=== PATIENT | female | born 1975 | race Caucasian/White ===

== ENCOUNTER 2018-07-14 10:53 | Inpatient (IN) ==
--- NOTE | 2018-07-11 14:42 | EKG Report ---
Test Performed on : 07/11/2018 2:28:43 PM Test Reason : PAT Blood Pressure : / mmHG Vent. Rate : 058 BPM Atrial Rate : 058 BPM P-R Int : 114 ms QRS Dur : 078 ms QT Int : 378 ms P-R-T Axes : 077 078 074 degrees QTc Int : 371 ms Sinus bradycardia. Otherwise normal ECG No previous ECGs available Confirmed by Haley SHERMAN, Mark Fine ([id number]) on 07/11/2018 5:51:57 PM
[2018-07-11 14:55] LABS: HEMATOCRIT 41.4 % (37.0-47.0); HEMOGLOBIN 13.5 g/dL (12.0-16.0); MCH 29.3 PG (27-31); MCHC 32.6 g/dL (33-37); MPV 11.6 FL (7.4-10.4); RBC 4.6 XMIL (4.2-5.4); RDW 14.4 % (11.5-14.5); WBC 11.12 X1000 (4.8-10.8)
[2018-07-11 15:07] LABS: AGAP 11; ALB/GLOB RATIO 1.6; ALBUMIN 4.1 g/dL (3.5-5.0); ALKALINE PHOSPHATASE 160 U/L (32-104); BUN 16 mg/dL (8-22); CALCIUM 10.8 mg/dL (8.8-10.2); CHLORIDE 101 mmol/L (98-107); COSMO 274; ESTIMATED GFR > 60; GLUCOSE 87 mg/dL (70-104); GOT 15 U/L (10-30); GPT 8 U/L (10-36); POTASSIUM 5.1 mmol/L (3.5-5.1); SODIUM 137 mmol/L (136-145); TCO2 25 mmol/L (25-35); TOTAL BILIRUBIN 0.21 mg/dL (0.20-1.00); TOTAL PROTEIN 6.7 g/dL (6.3-8.3)
[2018-07-14] MEDS ORDERED: PEPCID ONE (11:54)
[2018-07-14] MEDS ORDERED: LR 1,000 ML ONE ×2 (11:54→16:09)
[2018-07-14] MEDS ORDERED: MEFOXIN 2 GM/NS 2 GM/50 ML IVPB ONE (11:54)
[2018-07-14] MEDS ORDERED: REGLAN ONE (11:54)
[2018-07-14] MEDS ORDERED: DIPRIVAN 1% ONE ×2 (12:14→13:06)
[2018-07-14] MEDS ORDERED: XYLOCAINE-MPF 2% ONE ×2 (12:14→13:07)
[2018-07-14] MEDS ORDERED: EXPAREL 1.3% ONE (12:27)
[2018-07-14] MEDS ORDERED: SODIUM CHLORIDE 0.9% 10 ML ONE (13:09)
[2018-07-14] MEDS ORDERED: QUELICIN (DOSE) ONE (13:09)
[2018-07-14] MEDS ORDERED: VERSED ONE (13:09)
[2018-07-14] MEDS ORDERED: NORCURON ONE (13:09)
[2018-07-14] MEDS ORDERED: FENTANYL ONE (13:53)
[2018-07-14] MEDS ORDERED: ZOFRAN ONE (14:02)
[2018-07-14] MEDS ORDERED: DECADRON ONE (14:02)
[2018-07-14 14:42] LABS: URINE SOURCE CATH
[2018-07-14 14:53] LABS: BILIRUBIN URINE NEGATIVE (NEGATIVE); BLOOD URINE NEGATIVE (NEGATIVE); COLOR YELLOW; GLUCOSE URINE NEGATIVE (NEGATIVE); KETONE URINE NEGATIVE (NEGATIVE); LEUKOCYTES URINE NEGATIVE (NEGATIVE); NITRITE URINE NEGATIVE (NEGATIVE); PH URINE 5.5; PROTEIN URINE NEGATIVE (NEGATIVE); SP GRAVITY URINE 1.005; TURBIDITY URINE CLEAR (CLEAR); UR EPITHELIAL CELLS <10 /HPF (<10); URINE BACTERIA NEGATIVE /HPF; URINE RBC <10 /HPF (<10); URINE WBC <10 /HPF (<10); UROBILINOGEN URINE NORMAL (NORMAL)
[2018-07-14] MEDS: DILAUDID ONE ×4 (15:48→16:02)
[2018-07-14] MEDS: PHENERGAN ONE ×2 (15:55→16:41)
[2018-07-14] MEDS ORDERED: ZOFRAN IV PRN (17:05)
[2018-07-14] MEDS ORDERED: DILAUDID IV PRN (17:07)
[2018-07-14] MEDS ORDERED: PROTONIX IV SCH (18:00)
[2018-07-14] MEDS: LR 1,000 ML IV SCH (19:03)
[2018-07-14] MEDS: SODIUM CHLORIDE 0.9% INJ SCH (19:03)
[2018-07-14] MEDS ORDERED: SODIUM CHLORIDE 0.9% INJ PRN (20:08)
[2018-07-14] MEDS ORDERED: NEURONTIN PO SCH (21:00)
[2018-07-14] MEDS: DILAUDID IV PRN (22:30)
[2018-07-14] MEDS: LOPRESSOR IV SCH (22:33)
[2018-07-15] MEDS: DILAUDID IV PRN ×6 (02:59→16:37)
[2018-07-15] MEDS: LR 1,000 ML IV SCH ×3 (03:02→23:14)
--- NOTE | 2018-07-15 05:29 | OPERATIVE NOTE ---
PROCEDURE DATE: 07/14/2018 PREOPERATIVE DIAGNOSIS: Intractable peptic ulcer disease, with gastric outlet obstruction, and acquired pyloric stenosis. POSTOPERATIVE DIAGNOSIS: Intractable peptic ulcer disease, with gastric outlet obstruction, and acquired pyloric stenosis. PROCEDURE: 1. Open antrectomy, with Billroth I anastomosis. 2. Truncal vagotomy. SURGEON: Dr. Saul Arcos. SUPERVISOR HAND SILVERING: Dr. Santiago Gonzalez. (Dr. Gonzalez was present for the entirety of the case. His presence was crucial for completion of the case.) ANESTHESIA: General endotracheal. OPERATIVE FINDINGS: Two nerves noted, anterior and posterior vagus nerves, confirmed with Pathology. COMPLICATIONS: None at the time of this dictation. ESTIMATED BLOOD LOSS: 100 mL. SPECIMEN REMOVED: Vagus nerve x2 in the antrum. BRIEF HISTORY: A 42-year-old female who had intractable peptic ulcer disease and pyloric stenosis, despite maximal medical therapy. It was felt that she would benefit from a truncal vagotomy and an antrectomy. The risks, benefits, and alternatives were discussed and documented in the chart. All questions answered. DESCRIPTION OF PROCEDURE: After informed consent was obtained, the patient was brought to the operative theatre, transferred to the operative table, placed in supine position. General endotracheal anesthesia was then performed, without complication. A formal time-out was then performed, confirming patient, date, and procedure. All were in agreement. At that time, attention was given in the midline. A standard midline incision was made on the upper aspect of the abdomen. Entered into the abdomen. We first mobilized the left lobe of the liver by taking down the triangle ligament to expose the hiatus. I was able to get around the esophagus after having the NG tube placed. We had freed up the peritoneal around the esophagus, found both the anterior and posterior vagi. I isolated them, clipped them both proximally and distally, and at least 3 cm in vivo was excised, sent down to Pathology, and confirmed both peripheral nerves in both the anterior and posterior specimen. We did not feel any other obvious nerves there. We then turned our attention to the antrectomy. We found the incisura of the stomach in the anatomic position of the antrum. We mobilized the greater curvature and the lesser curvature the stomach, all the way down to the duodenum. We then fired a stapler across the antrum and the duodenum. We then fashioned a hand-sewn anastomosis in 2 layers using 3-0 silk and 3-0 Vicryl, and a Billroth I anastomosis, anastomosing the stomach to the duodenum. This went well. We oversewed it and confirmed it was patent. We then irrigated out the abdomen, then closed the abdomen in layers using looped PDS and arsalan for the skin. The patient tolerated the procedure well, and was transferred back to the recovery room in stable condition. She had an NG tube in the stomach. cc: Saul Arcos MD
[2018-07-15] MEDS: SYNTHROID IV SCH (06:11)
[2018-07-15] MEDS: HEPARIN SUBQ SCH ×3 (06:12→23:16)
[2018-07-15 06:22] LABS: BASO# 0.02 X1000 (0.0-0.2); BASO% 0.1 % (0.0-0.8); HEMATOCRIT 34.1 % (37.0-47.0); HEMOGLOBIN 10.8 g/dL (12.0-16.0); IMM GRAN# 0.08 X1000 (0.0-0.04); IMM GRAN% 0.4 % (0.0-0.5); LYMPH# 1.81 X1000 (1.2-3.4); LYMPH% 8.1 % (20.5-51.1); MCHC 31.7 g/dL (33-37); MCV 91.7 FL (81-99); MONO# 2.28 X1000 (0.11-0.59); MONO% 10.2 % (1.7-9.3); MPV 12.3 FL (7.4-10.4); NEUT# 18.19 X1000 (1.4-6.5); NEUT% 81.2 % (42.2-75.2); PLT 288 X1000 (130-400); RBC 3.72 XMIL (4.2-5.4); RDW 14.5 % (11.5-14.5); WBC 22.38 X1000 (4.8-10.8)
--- NOTE | 2018-07-15 06:32 | CONSULTATION ---
DATE OF CONSULTATION: 07/14/2018 REASON FOR CONSULTATION: Request for medical management. HISTORY: Briefly, this is a 42-year-old female patient of Dr. Ronquillo and Dr. Arcos who has intractable peptic ulcer disease. She had a scope done 10 days ago, I do not have the report, but the biopsy shows severe gastritis and colitis. In any case, she underwent elective vagotomy and antrectomy today per Dr. Arcos. He is requesting a postop medical management consultation. She is to be strictly NPO for the time being. I am seeing her postop, NG is in place. She seems comfortable and relaxed, no major issues. PAST MEDICAL HISTORY: 1. Hypertension. 2. IBS. 3. Hypothyroidism. 4. Severe peptic ulcer disease. PAST SURGICAL HISTORY: I could not get clear if she has had surgery on her right hand associated with trauma. 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 SOCIAL HISTORY: She smokes about a pack a day. She has done that for at least 25 years. No clear alcohol use. ALLERGIES: To codeine and morphine. MEDICATIONS: She takes Bentyl 20 q.i.d., gabapentin 300 at bedtime, hydrochlorothiazide 25 daily, irbesartan 300 daily, Synthroid 75 daily, Lopressor 50 daily, omeprazole 40 daily, and sucralfate 1 g q.i.d. REVIEW OF SYSTEMS: Otherwise negative 10 point review of systems. FAMILY HISTORY: Noncontributory except for hypertension. PHYSICAL EXAMINATION: Vital Signs: Blood pressure 114/81, respiratory rate of 18, heart rate 113, and temperature 98.1 degrees. General: A well-developed female in no acute distress. HEENT: Head exam was normocephalic and atraumatic. Eye exam pupils equal, round, and reactive to light. Extraocular movements were intact. Ears, nose and throat: Moist mucous membranes. Neck: Supple. Cardiovascular: Regular rate and rhythm. Pulmonary: Bilateral breath sounds. GI: Soft, nontender, and nondistended. Bowel sounds are positive. Neurological: Nonfocal. Musculoskeletal: 4/5 in all 4 extremities. LABORATORY DATA: Preop hemoglobin and hematocrit 13 and 41. Basic was otherwise normal. ASSESSMENT: A 42-year-old female with history of PUD and hypertension who presents status post vagotomy and antrectomy for medical management. 1. Hypertension. We will continue to monitor. Currently, she is normotensive and strict NPO. We will initiate some low-dose Lopressor and follow. 2. Hypothyroidism. We will check her thyroid function and continue Synthroid intravenously at half dose. 3. Peptic ulcer disease, status post vagotomy. Care will be per Dr. Arcos. We will follow closely along with him. Continue DVT and GI prophylaxis. As described, Lovenox and Protonix. cc: MD Saul Vizcaino MD Thomas E. Lockard,
[2018-07-15 06:51] LABS: CALCIUM 9.9 mg/dL (8.8-10.2); MAGNESIUM 1.8 mg/dL (1.5-2.7); POTASSIUM 5.6 mmol/L (3.5-5.1)
[2018-07-15] MEDS ORDERED: LOPRESSOR PO SCH (09:00)
--- NOTE | 2018-07-15 09:25 | GENERAL SURGERY PROGRESS NOTE ---
DATE: 07/15/2018 SUBJECTIVE: Patient seems to be doing okay. Her pain seems to be better controlled now. She had some alterations to her pain medication. OBJECTIVE: Vital Signs: Patient is currently afebrile. She does have a low-grade tachycardia. Her blood pressure is stable. General: No acute distress. Cardiovascular: Some mild tachycardia. Lungs: Grossly clear. Abdomen: Soft, appropriately tender. NG tube in place with minimal output. ASSESSMENT AND PLAN: A 42-year-old postop day #1 from a vagotomy with antrectomy with Billroth 1 reconstruction. 1. Postoperative state at this time, we will continue routine postoperative care. We will discontinue her Henao catheter. We will keep the NG tube in place until she has some return of bowel function. If the NG tube is removed, then we do not want it replaced. We will continue current treatment and continue to monitor. Overall she seems to be doing okay. I appreciate the hospitalist's help for medical management. cc: MD Patrice Hassan MD
[2018-07-15] MEDS: PERIDEX MT SCH ×2 (09:33→23:16)
[2018-07-15] MEDS: LOPRESSOR IV SCH ×3 (10:03→23:17)
[2018-07-15] MEDS ORDERED: LR 1,000 ML IV ONE (10:05)
[2018-07-15 12:45] LABS: UR CREAT RANDOM 203.4 mg/dL (11-20); UR PROT RANDOM 92.1 mg/dL
[2018-07-15] MEDS ORDERED: NARCAN IV PRN (18:31)
--- NOTE | 2018-07-15 19:24 | Diag Imaging Result Doc PS360 ---
EXAM: US RENAL 2 (RETROPER) COMPLETE INDICATION: radha/arf TECHNIQUE: COMPARISON: 08/24/2016 FINDINGS: There is a 1 cm simple cyst associated with the right kidney. The kidneys are grossly normal in echotexture, otherwise. Both kidneys measure up to 10.9 cm in the greatest longitudinal axes. The right renal cortex measures 1.1 cm in the left renal cortex measures 1 cm in thickness. The urinary bladder is grossly unremarkable. IMPRESSION: Essentially unremarkable renal ultrasound. Electronically signed by Rigoberto Ferrell 07/15/2018 7:22 PM
[2018-07-15] MEDS: DILAUDID PCA VIAL IV PRN (20:46)
--- NOTE | 2018-07-16 00:18 | PROGRESS NOTE ---
DATE: 07/15/2018 SUBJECTIVE: The patient has no major complaints. OBJECTIVE: Vital signs: Blood pressure is 128/86, heart rate of 114, respiratory rate 16, temperature 99.2 degrees, 99% on 2 L. Cardiovascular: Regular rate and rhythm. Pulmonary: Bilateral breath sounds. Clear to auscultation. Gastrointestinal: Soft, nontender, nondistended. Bowel sounds are positive. LABORATORY DATA: White count is 22, hemoglobin 10, hematocrit 34, platelets 288,000. Potassium 5.6. Creatinine has bumped up to 2. PROBLEM LIST: 1. Severe peptic ulcer disease with pyloric stricture. She is status post an antrectomy and vagotomy, postop day 1, per Dr. Arcos. NG is in place. Continuing fluids, and we will follow closely. Dr. Ronquillo is also following. 2. Acute kidney injury, really unclear. She has not received anything nephrotoxic. She is on irbesartan and hydrochlorothiazide usually, but she has not gotten those since she has been in the hospital. The only medication I can see that potentially would cause renal injury is the Mefoxin she got preop. It would be an allergic interstitial nephritis, possibly. In any case, the patient is stable. We will continue hydration, check urine electrolytes, and follow. 3. Hypothyroidism. That also seems to be controlled on current medications. 4. It may be several days before discharge. cc: Patrice Ragsdale MD
[2018-07-16] MEDS ORDERED: NS 500 ML IV ONE (03:03)
[2018-07-16] MEDS: LOPRESSOR IV SCH ×5 (03:09→22:30)
--- NOTE | 2018-07-16 04:25 | CONSULTATION ---
DATE OF CONSULTATION: 07/15/2018 REFERRING PHYSICIAN: Saul Arcos MD. INDICATION FOR CONSULTATION: 1. Peptic ulcer disease. 2. Anemia. HISTORY OF PRESENT ILLNESS: The patient is 42-year-old female who is well known to our clinic. She was initially referred to our office in November 2017 for vomiting post colonoscopy. The CT scan of the abdomen and pelvis revealed an ulcer. On EGD, she was found to have a 4 cm ulcer with heaped-up edges in the antrum with visible vessels. The vessels were cauterized. She also had gastric stasis due to a functional gastric outlet obstruction, which was treated with balloon dilation of the pylorus. Post procedure, the patient continued to have epigastric pain. She underwent repeat EGD x2 at 12 and 24 weeks following the initial procedure. She clinically had failed to respond to PPI therapy twice a day with Pepcid Complete at night, along with Carafate 4 times a day. She required pyloric dilation on 3 separate occasions due to functional gastric outlet obstruction. She continued to have weight loss and abdominal pain despite therapy. Her biopsies, which were performed at the [facility], revealed a large gastric ulcer but no evidence of malignancy. Her biopsies have been repeatedly H. pylori negative. She presented to the clinic in early June and reported that she was feeling well. She underwent an EGD and a screening colonoscopy on 07/07/2018 as she also has a family history of colon cancer in an aunt who was diagnosed with colon cancer in her 40s. On EGD, she was found to have gastric outlet obstruction with a persistent antral ulcer. She had severe pyloric stenosis again for the 3rd time with a pinpoint lumen. Her pyloric stenosis was dilated using balloon dilation. She also had duodenitis on EGD. On colonoscopy, she was found to have hyperplastic colon polyps, diverticulosis, and patchy focal colitis at 30 cm which was thought to be related to her bowel prep. She reports a history of diarrhea that had improved prior to her endoscopic evaluation. Her gastric emptying study revealed almost no output, consistent with gastric outlet obstruction versus severe gastroparesis. She was referred to Dr. Gregg Arcos for recurrent pyloric stenosis with gastric outlet obstruction. She is 24 hours postop from an antrectomy with vagotomy. Currently, she reports mild abdominal pain. She denies fever and chills. However, her clinical course has been remarkable for worsening anemia, acute renal failure, and leukocytosis. We are asked to participate in her care. PAST MEDICAL HISTORY: 1. Hypertension. 2. IBS. 3. Hypothyroidism. 4. Severe peptic ulcer disease. 5. Diverticulosis. 6. Hyperplastic colon polyps. 7. Hemorrhoids. 8. Traumatic injury to the right hand resulting in a right digit amputation in 1998. PAST SURGICAL HISTORY: 1. Bilateral tubal ligation. 2. Right finger traumatic injury resulting in amputation in 1998. 3. Antrectomy with vagotomy as noted above. SOCIAL HISTORY: Negative for alcohol, recreational drug use. She smokes 1 pack per day for the last 25 years. MEDICATION ALLERGIES: 1. Codeine. 2. Morphine. HOME MEDICATIONS: 1. Bentyl. 2. Gabapentin. 3. Hydrochlorothiazide. 4. Irbesartan. 5. Synthroid. 6. Lopressor. 7. Omeprazole. 8. Carafate 4 times a day. 9. Pepcid Complete as needed. REVIEW OF SYSTEMS: Remarkable for increased thirst and the expected postop abdominal pain. FAMILY HISTORY: Remarkable in that her paternal aunt had colon cancer in her 40s. There is also a history of hypertension. PHYSICAL EXAMINATION: Vital Signs: Her blood pressure is 128/86, pulse of 114, respirations 16, temperature of 99.2 degrees. Her pain is a 8 to 10 out of 10 on a 0 to 10 scale. OBJECTIVE DATA: Reveals a hemoglobin of 10.8 with hematocrit of 34.1 and a white count of 22.38. She has 288,000 platelets. Sodium is 138, potassium 5.6, chloride 102, CO2 of 24, BUN 31, creatinine 2.0, glucose 121, and a calcium of 9.9. Her magnesium is 1.8. On 07/11/2017, her total bilirubin was 0.21, AST 15, ALT 8, alkaline phosphatase 160, total protein 6.7, albumin 4.1. IMPRESSION: 1. Peptic ulcer disease. 2. Anemia. 3. Acute renal failure. 4. Elevated alkaline phosphatase. RECOMMENDATION: 1. From a GI perspective, the patient is status post antrectomy with vagotomy for severe peptic ulcer disease. Therefore, I will increase her Protonix to 40 mg IV q.12 hours. 2. The patient was noted to be anemic. I recommend conservative management at this time. However, if her hemoglobin continues to drop, she may require evaluation of her small bowel. On her colonoscopy, she had findings as noted above. She also has the history of peptic ulcer disease. If it drops below 7.0, please transfuse as clinically indicated. 3. The patient had nonspecific colitis on colonoscopy. The etiology is unclear and may be related to her bowel prep. Given her recent surgery, I recommend careful monitoring at this time. We may need to pursue further evaluation if she develops symptoms. 4. The acute renal failure is of unknown etiology. I will defer to the hospitalist for further evaluation. 5. The patient has elevated alkaline phosphatase. I recommend that we check alkaline phosphatase fractions. Depending on the findings on the fractionated alkaline phosphatase, I will pursue further evaluation. I will also check a GGT and a 5'-Nucleotidase. 6. I will provide the patient with ice chips as she reports increased thirst. 7. I will discuss with the surgical team the timing of tube feedings versus resumption of an oral diet. cc: MD Patrice Long MD Matthew L. Figh, MD
[2018-07-16 05:50] LABS: BASO# 0.02 X1000 (0.0-0.2); BASO% 0.1 % (0.0-0.8); HEMATOCRIT 26.5 % (37.0-47.0); HEMOGLOBIN 8.5 g/dL (12.0-16.0); IMM GRAN# 0.08 X1000 (0.0-0.04); IMM GRAN% 0.4 % (0.0-0.5); LYMPH# 1.33 X1000 (1.2-3.4); LYMPH% 6.6 % (20.5-51.1); MCH 29.4 PG (27-31); MCHC 32.1 g/dL (33-37); MCV 91.7 FL (81-99); MONO# 2.11 X1000 (0.11-0.59); MONO% 10.5 % (1.7-9.3); MPV 12.6 FL (7.4-10.4); NEUT# 16.65 X1000 (1.4-6.5); NEUT% 82.4 % (42.2-75.2); PLT 185 X1000 (130-400); RBC 2.89 XMIL (4.2-5.4); RDW 14.5 % (11.5-14.5); WBC 20.19 X1000 (4.8-10.8)
[2018-07-16 06:15] LABS: ALB/GLOB RATIO 1.2; CALCIUM 9.4 mg/dL (8.8-10.2); CREATININE 1.8 mg/dL (0.5-0.9); DIRECT BILIRUBIN 0.2 mg/dL (0.00-0.20); POTASSIUM 4.9 mmol/L (3.5-5.1); TOTAL BILIRUBIN 0.52 mg/dL (0.20-1.00); TOTAL PROTEIN 5.5 g/dL (6.3-8.3)
[2018-07-16 07:02] LABS: BANDS 2 % (0-1); LYMPHS 14 % (21-51); MONO 13 % (1-9); SEGS 71 % (42-75)
[2018-07-16] MEDS: HEPARIN SUBQ SCH ×2 (07:45→15:38)
[2018-07-16] MEDS: SYNTHROID IV SCH (07:45)
[2018-07-16] MEDS: PROTONIX IV SCH ×3 (07:46→20:18)
[2018-07-16] MEDS: SODIUM CHLORIDE 0.9% INJ SCH ×2 (07:47→18:01)
[2018-07-16] MEDS: PERIDEX MT SCH ×3 (08:17→22:30)
[2018-07-16] MEDS: LR 1,000 ML IV SCH ×2 (09:32→22:28)
[2018-07-16] MEDS ORDERED: LR 1,000 ML IV ONE (12:06)
--- NOTE | 2018-07-16 13:36 | PROGRESS NOTE ---
DATE: 07/16/2018 SUBJECTIVE: Ms. Kidd is now postop day #2 from an open truncal vagotomy, antrectomy with B1 anastomosis per Dr. Arcos. This was done for or gastric outlet obstruction. She still has an NG tube in place. She is awake, she appears to be comfortable. Her abdomen is soft. OBJECTIVE: Vital Signs: Her heart rate is 138, blood pressure 97/62, O2 saturation 94%, her temperature is 99.5. LABORATORY: Her white blood cell count has dropped from 22 to 20, hematocrit is 26%. Electrolytes show a BUN of 36 and a creatinine of 1.8. It must be noted that her AST and ALT are significantly elevated. Her AST is 1819, her ALT is 2130. Her total bilirubin was normal. PLAN: Her white blood cell count is decreasing, so is her creatinine. Liver function tests I am unsure of the etiology of that. Her NG tube has not put out much volume. It is uncomfortable for her and I will discontinue it. We will keep her n.p.o. for now. Will try to start increasing her activity. cc: MD Patrice Oglesby MD
[2018-07-16] MEDS: MERREM 500 MG in NS 50 ML IV SCH ×2 (13:51→22:30)
[2018-07-16] MEDS ORDERED: OFIRMEV 1000 MG/ISOTONIC SOLN 1,000 MG/100 ML BOTTLE IV PRN (16:24)
[2018-07-16 17:52] LABS: URINE SOURCE CLEAN CATCH
--- NOTE | 2018-07-16 17:54 | Diag Imaging Result Doc PS360 ---
EXAM: CHEST-PORTABLE INDICATION: tachycardia TECHNIQUE: One view COMPARISON: None. FINDINGS: There is a focal retrocardiac opacity on the left suggesting possible infiltrate. Otherwise, the lungs are grossly clear. There is no discrete pleural fluid collection or pneumothorax. The cardiomediastinal silhouette and central vasculature are grossly unremarkable. There is a tiny crescentic air density focus at the lateral right lung base. This probably represents atelectasis. I suppose trace free abdominal gas overlying the dome of the liver cannot completely be excluded. Consider a dedicated flat and upright radiograph of the abdomen including a left lateral decubitus projection to fully evaluate. IMPRESSION: 1.Focal opacity at the medial left lung base that could represent developing consolidation. 2.Trace crescentic gas density at the lateral right lung base. Please see the above discussion. Electronically signed by Rigoberto Ferrell 07/16/2018 5:52 PM
[2018-07-16 18:07] LABS: BILIRUBIN URINE NEGATIVE (NEGATIVE); BLOOD URINE MODERATE (NEGATIVE); COLOR YELLOW; GLUCOSE URINE NEGATIVE (NEGATIVE); KETONE URINE TRACE mg/dL (NEGATIVE); LEUKOCYTES URINE TRACE (NEGATIVE); NITRITE URINE NEGATIVE (NEGATIVE); PH URINE 7.5; PROTEIN URINE 70 mg/dL (NEGATIVE); SP GRAVITY URINE 1.011; TURBIDITY URINE HAZY (CLEAR); UR EPITHELIAL CELLS >10 /HPF (<10); URINE BACTERIA 1+ /HPF; URINE RBC <10 /HPF (<10); URINE WBC <10 /HPF (<10); UROBILINOGEN URINE NORMAL (NORMAL)
[2018-07-16] MEDS: DILAUDID PCA VIAL IV PRN (18:20)
[2018-07-16 18:37] LABS: HEMATOCRIT 22.3 % (37.0-47.0); HEMOGLOBIN 7.1 g/dL (12.0-16.0)
[2018-07-16 18:54] LABS: IRON SATURATION 11 %; TIBC 161 ug/dL; TOTAL IRON 18 ug/dL (49-151); UNBOUND IRON 143 ug/dL (112-346)
[2018-07-16 19:34] LABS: FERRITIN 4213 ng/mL (13-150)
--- NOTE | 2018-07-16 19:41 | Diag Imaging Result Doc PS360 ---
EXAM: ABDOMEN FLAT/UPRIGHT INDICATION: pain TECHNIQUE: 2 views COMPARISON: None. FINDINGS: There are a few mildly distended loops of bowel. Some of this is colonic gas. This suggests a mild postsurgical ileus. There is a fair amount stool in the colon. The trace free air underlying the right hemidiaphragm seen on the recent chest radiograph is explained by the very recent surgery. No unexpected large volume free abdominal gas is appreciated. IMPRESSION: 1.Suggestion of mild postsurgical ileus. 2.The trace free air seen on the recent chest radiograph is now assumed to be postsurgical gas given that there has been a very recent laparotomy. Electronically signed by Rigoberto Ferrell 07/16/2018 7:38 PM
--- NOTE | 2018-07-16 23:28 | PROGRESS NOTE ---
DATE: 07/16/2018 SUBJECTIVE: The patient has no focal complaints, except for pain. She is still very tachycardic. OBJECTIVE: Vital Signs: Blood pressure is 116/76, heart rate of 142, respiratory rate 24, temperature is 101.7 degrees, 93% on 2 L. Cardiovascular: Regular rate and rhythm. Pulmonary: Bilateral breath sounds. Clear to auscultation. GI: Soft, nontender, nondistended. Bowel sounds were positive. Extremities: No clubbing or cyanosis. Lymphatics: No peripheral edema. Neurological: Nonfocal. Abdominal: Tight, but there is no rebound or guarding. Bowel sounds are diminished. LABORATORY DATA: Her white count is 20, hemoglobin and hematocrit of 8 and 26, platelets of 185,000. BUN and creatinine are 36 and 1.8. Her AST and ALT however have jumped to 1819 and 2130, with an LDH of 1721. PROBLEM LIST: 1. Acute kidney injury. She seems to be doing okay. That is improved somewhat with hydration. Unclear what the mechanism was, unless it was just transient hypotension. We will continue fluids and follow. Renal ultrasound was unremarkable. 2. Acute elevation in liver enzymes, acute hepatitis, possibly secondary to an acute liver injury. She did have some brief hypotension in the OR. She has now had a fairly profound bump in her liver enzymes. Really, she is not on anything nephrotoxic. She did get a dose of acetaminophen today, but that was after her liver enzymes were elevated, because she had a very high fever. The patient has had transient hypotension and progressive issues with that. The patient is stable otherwise. 3. Fever of unclear etiology. We will check blood cultures, chest x-ray, and urine, and see what is going on there. She is very tachycardic, without a great explanation. We have to consider a postop bleed potentially. I am going to repeat her hemoglobin and discuss the case briefly with Dr. Gonzalez. cc: Patrice Ragsdale MD
[2018-07-17] MEDS: LOPRESSOR IV SCH ×5 (03:16→22:42)
[2018-07-17] MEDS: PROTONIX IV SCH ×3 (04:06→18:54)
[2018-07-17] MEDS: MERREM 500 MG in NS 50 ML IV SCH ×2 (04:07→13:19)
[2018-07-17 06:20] LABS: BASO# 0.03 X1000 (0.0-0.2); BASO% 0.2 % (0.0-0.8); EOS# 0.04 X1000 (0.0-0.7); EOS% 0.2 % (0.0-10.0); HEMATOCRIT 23.7 % (37.0-47.0); HEMOGLOBIN 7.6 g/dL (12.0-16.0); IMM GRAN# 0.08 X1000 (0.0-0.04); IMM GRAN% 0.4 % (0.0-0.5); LYMPH# 1.51 X1000 (1.2-3.4); MCHC 32.1 g/dL (33-37); MCV 90.5 FL (81-99); MONO# 1.36 X1000 (0.11-0.59); MONO% 7.2 % (1.7-9.3); MPV 12.5 FL (7.4-10.4); PLT 175 X1000 (130-400); RBC 2.62 XMIL (4.2-5.4); RDW 14.5 % (11.5-14.5); WBC 18.92 X1000 (4.8-10.8)
[2018-07-17] MEDS: SYNTHROID IV SCH (06:50)
[2018-07-17 07:03] LABS: ALBUMIN 2.7 g/dL (3.5-5.0); CALCIUM 9.7 mg/dL (8.8-10.2); CREATININE 1.1 mg/dL (0.5-0.9); DIRECT BILIRUBIN 0.3 mg/dL (0.00-0.20); POTASSIUM 4.2 mmol/L (3.5-5.1); TOTAL BILIRUBIN 1.16 mg/dL (0.20-1.00); TOTAL PROTEIN 5.4 g/dL (6.3-8.3)
[2018-07-17] MEDS: LR 1,000 ML IV SCH ×2 (07:35→10:32)
--- NOTE | 2018-07-17 10:27 | GASTROENTEROLOGY PROGRESS NOTE ---
DATE: 07/17/2018 SUBJECTIVE: Patient resting in bed. Her father is at the bedside. The patient complains of mild abdominal discomfort. She is passing flatus. She denies any nausea or vomiting. She denies any bowel movements so far. She has had fever spikes last evening, but is afebrile today. OBJECTIVE: Vital signs: Temperature 98.4 degrees, pulse 120, respiratory rate of 18, blood pressure 130/88, saturating 92% on 2 L nasal cannula. General Appearance: Moderately-built, moderately nourished, lying in bed, in no acute distress. HEENT: Pale conjunctivae, no icterus. Neck: Supple. Abdomen: Midline surgical dressing. Abdomen is softer than yesterday. Discomfort in the abdomen from recent surgery. Extremities: No cyanosis, clubbing, edema. Neurologic: She is alert, awake, oriented x3. LABORATORIES: Hemoglobin and hematocrit is 7.6 and 23.7, white count of 18.9, platelet count of 135,000. Sodium 141, potassium 4.2, chloride 109, bicarb 21, anion gap 11, BUN of 23, creatinine 1.1, glucose of 90. Calcium 9.7, total bilirubin is 1.16, direct of 0.3. AST 539, ALT 1250, alkaline phosphatase is 182, total protein 5.4, albumin of 2.7. Blood cultures were drawn yesterday, they are currently pending. Urine culture is pending. IMAGING: Abdominal x-ray was done yesterday which showed suggestion of mild postsurgical ileus. A small amount of trace air noted likely secondary to postsurgical gas given the patient had a recent laparotomy. IMPRESSION AND PLAN: 1. Elevated liver enzymes. We will follow up the liver enzymes. We will follow up on the hepatitis panel, CMV, HSV levels. 2. We will try to keep the mean arterial pressure more than 65 mmHg. 3. Anemia. Continue to watch for now, transfuse as needed. 4. We will start her on iron C b.i.d. and multivitamin once daily. We will type and screen today. 5. Gastrointestinal prophylaxis with Protonix b.i.d. 6. Leukocytosis and fevers. Panculture has been ordered. She is on meropenem. Her white count is slowly trending down. 7. Continue IV fluids 150 mL/hour and we will start her on Clinimix because the patient is still nothing per oral. 8. The above plans were discussed with the patient and the family at bedside. All questions answered. Please call with any further questions. cc: MD Patrice Arcos MD Jeanette Keith, MD
[2018-07-17] MEDS: PERIDEX MT SCH ×2 (10:34→22:42)
--- NOTE | 2018-07-17 10:37 | PROGRESS NOTE ---
DATE: 07/17/2018 SUBJECTIVE: Ms. Kidd is now postop day 3 from an open truncal vagotomy, antrectomy with B [address] Arcos. OBJECTIVE: Her heart rate is 120, blood pressure 130/88 ,O2 saturation 93%. She is afebrile. She was placed on Merrem because of her elevated white blood cell count. She had a low-grade fever yesterday to 100.3. It appears that she has a productive cough. She does not have a Henao catheter tube. She is getting up, going to the bathroom. Bedside commode is in her bathroom. I removed her NG tube yesterday. She has had no nausea or vomiting, but we have kept her pretty much n.p.o., except for ice chips. Her upper midline incision is dressed. Her abdomen is slightly distended, but she is having flatus. LABS AND X-RAYS: Her white blood cell count has decreased from 20 to 19. Her hematocrit is low at 24%. BUN and creatinine are 23 and 1.1. The rest of her electrolytes seemed to be within normal limits. Her liver function tests were elevated yesterday, but all those function tests are trending towards normal. Abdominal and chest x-rays were unremarkable, performed last night. PLAN: I will allow her to have clear liquids. IV antibiotics will continue and will follow her clinically. cc: MD Patrice Oglesby MD
[2018-07-17] MEDS: CLINIMIX E 4.25%-5% SOLUTION 1,000 ML IV SCH (13:23)
[2018-07-17] MEDS ORDERED: NS 500 ML ONE (14:26)
--- NOTE | 2018-07-17 16:43 | GASTROENTEROLOGY PROGRESS NOTE ---
DATE: 07/16/2018 PRIMARY CARE PHYSICIAN: Rachana Ronquillo MD. SUBJECTIVE: The patient is resting in bed. She was noted to have elevated liver enzymes today, and she has abdominal discomfort. She denies any nausea or vomiting. She has a temperature of 101.7. She has not had a bowel movement yet. She was admitted on 07/14/2018 and has open antrectomy with Billroth I anastomosis and truncal vagotomy by Dr. Arcos. OBJECTIVE: Vital signs: Temperature is 101.7, pulse 142, respiratory rate, and blood pressure 116/76. She is saturating at 93% on nasal cannula. Body weight 151 pounds. BMI 23.9. General: This is a moderately built, moderately nourished, lying in bed in no acute respiratory distress. HEENT: Pupils are equal and round. No icterus. Neck: Supple. Abdomen: Midline surgical dressing noted. The abdomen is slightly tense and tender throughout. Likely postoperative state. She has not passed any flatus. Extremities: No cyanosis , clubbing or edema. Neurological: She is awake, alert and oriented. LABORATORY: Her H H is 8.5 and 26.5. White count is 20.19. Platelet count 185. Sodium 130, potassium 4.9, chloride 104, bicarb 23, anion gap 11, BUN 36, creatinine 1.8, glucose 101, calcium 9.4, total bilirubin 0.52, direct is 0.2. GGT 22, AST 1,819, ALT 2,130 , osmolality 215, total protein 5.5, albumin 3. IMPRESSION AND PLAN: 1. Elevated liver enzymes of acute onset; likely shock liver. She has had some hypotensive episodes per the report, so we will keep her on fluids. I spoke with Dr. Ragsdale. He is giving one liter bolus, and we will increase the fluid to 150 mL per hour. We also need to rule out sepsis as the patient has a fever and high white count in the setting of postoperative care. I have discussed the option of doing imaging, CT scan, if okay with the general surgery team. 2. GI prophylaxis. Protonix b.i.d. 3. She is on antibiotics with meropenem. She may need panculture as she is spiking a temperature. We will check her for CMP and herpes simplex as well as she has acute elevation in liver enzymes. 4. We will follow above. The above plan was discussed with the patient and family. cc: MD Patrice Arcos MD Thomas E. Lockard, DO Matthew L. Figh, MD MTDD
[2018-07-17] MEDS ORDERED: MOTRIN PO ONE (17:06)
[2018-07-17] MEDS ORDERED: LR 1,000 ML IV SCH (17:30)
[2018-07-17] MEDS ORDERED: DULCOLAX PR ONE (17:47)
--- NOTE | 2018-07-17 18:57 | PROGRESS NOTE ---
DATE: 07/17/2018 SUBJECTIVE: She looks much better. No major issues. She is still having a very high fever, which I do not have a clear etiology for, although she may have some degree of pneumonia in any case other than that she seems to be doing okay. OBJECTIVE: Temperature is 102 degrees, blood pressure 143/94, heart rate 117, respiratory rate 18, 93% on room air.Cardiovascular: Regular rate and rhythm. Pulmonary: Bilateral breath sounds. Clear to auscultation. GI: Soft, nontender, nondistended. Bowel sounds are positive. LABORATORY DATA: Her white count is down to 18, her hemoglobin and hematocrit has dropped to 7 and 23 was 13 and 14 on admission, her creatinine is down to 1.1 and a BUN of 23. Her AST is down to 539 and her ALT is down to 1250 that is from 18, 19 and 2130. Her T bilirubin is still a little bit high but most of it is indirect curiously but any ways will see, we will continue to monitor closely with her problem list and her plain films are just nonspecific, she may have a little bit of ileus in any case. PROBLEM LIST: 1. Acute hepatitis, acute liver injury. This may have been related transient hypotension. Her LDH being elevated is consistent with ischemic hepatitis and her numbers are improving with hydration. Appreciate Dr. Aj's help, Dr. Gonzalez's help. 2. Acute kidney injury also felt to be an acute tubular necrosis kind of process. We will continue IV fluids and it has improved. 3. Fever with likely developing pneumonia, she is on Merrem. I have adjusted the dose because of her improving renal function. If she is not much improved or she is still not quite where she needs to be we will get ID input. 4. Anemia which is of chronic blood loss, she is a bit iron deficient. Her ferritin level though is very high 4213 which is unusual but in any case I think we will analyze her and see how she does although ferritin elevation could just be an acute phase reactant but we will continue to monitor. Her anemia we will transfuse 1 unit, she is acting a little bit septic and I believe some of this hypovolemia and tachycardia may just be related to blood loss and dilutional blood loss. She has been placed on iron per Dr. Aj and like I said I have given her 1 unit of blood. Her fevers will be difficult to control cause we are trying to avoid NSAIDs and Tylenol in this setting but we will see how she does . cc: Patrice Ragsdale MD
[2018-07-17] MEDS: ICAR-C PO SCH (22:43)
[2018-07-17] MEDS: MERREM 1 GM in NS 50 ML IV SCH (22:55)
[2018-07-18] MEDS: CLINIMIX E 4.25%-5% SOLUTION 1,000 ML IV SCH ×2 (00:13→13:42)
[2018-07-18] MEDS: PROTONIX IV SCH ×2 (05:43→17:57)
[2018-07-18] MEDS: LOPRESSOR IV SCH ×4 (05:43→21:41)
[2018-07-18] MEDS: MERREM 1 GM in NS 50 ML IV SCH ×3 (05:43→21:41)
--- NOTE | 2018-07-18 06:08 | GENERAL SURGERY PROGRESS NOTE ---
DATE: 07/18/2018 SUBJECTIVE: Reviewed notes from the weekend. The patient did have a spike in her liver function test and her creatinine. She has had temperature spikes. She did receive a unit of blood last night. Her hematocrit did decrease to 22 on Wednesday. The patient seems to be doing okay right now, passing gas, but has not taken much in the way of liquids. Her NG tube was removed. OBJECTIVE: Vital Signs: Patient's current temperature 100 degrees, pulse 94, blood pressure 126/85. General: No acute distress. Cardiovascular: Regular rate and rhythm. Lungs: Grossly clear. Abdomen: Soft, appropriately tender. Bowel sounds auscultated. Incision is healing well. LABORATORY: Currently pending this morning. ASSESSMENT AND PLAN: A 42-year-old, currently postoperative day #4 from open truncal vagotomy, antrectomy and Billroth 1 anastomosis. Postoperative state at this time, we will follow up her a.m. labs looking for a leukocytosis, find out what her hematocrit is doing and what her liver function tests are doing. At this point we will keep her on a clear liquid diet. We will need to mobilize her and try to get her ambulating more. Appreciate consultants help. We will continue to follow her and monitor her closely. cc: MD Patrice Hassan MD
[2018-07-18 06:12] LABS: RETIC% 1.59 % (0.8-2.1)
[2018-07-18 06:23] LABS: AGAP 11; BUN 21 mg/dL (8-22); CALCIUM 9.5 mg/dL (8.8-10.2); CHLORIDE 103 mmol/L (98-107); COSMO 275; CREATININE 0.8 mg/dL (0.5-0.9); ESTIMATED GFR > 60; GLUCOSE 105 mg/dL (70-104); POTASSIUM 3.4 mmol/L (3.5-5.1); SODIUM 136 mmol/L (136-145); TCO2 22 mmol/L (25-35)
[2018-07-18 06:25] LABS: BASO# 0.03 X1000 (0.0-0.2); BASO% 0.2 % (0.0-0.8); EOS# 0.24 X1000 (0.0-0.7); EOS% 1.7 % (0.0-10.0); HEMATOCRIT 25.3 % (37.0-47.0); HEMOGLOBIN 8.6 g/dL (12.0-16.0); IMM GRAN# 0.09 X1000 (0.0-0.04); IMM GRAN% 0.6 % (0.0-0.5); LYMPH% 8.5 % (20.5-51.1); MCH 29.8 PG (27-31); MCV 87.5 FL (81-99); MONO# 1.63 X1000 (0.11-0.59); MONO% 11.6 % (1.7-9.3); NEUT# 10.88 X1000 (1.4-6.5); NEUT% 77.4 % (42.2-75.2); PLT 151 X1000 (130-400); RBC 2.89 XMIL (4.2-5.4); WBC 14.07 X1000 (4.8-10.8)
[2018-07-18 06:28] LABS: ALB/GLOB RATIO 1.3; ALBUMIN 2.6 g/dL (3.5-5.0); DIRECT BILIRUBIN 0.5 mg/dL (0.00-0.20); TOTAL BILIRUBIN 1.73 mg/dL (0.20-1.00); TOTAL PROTEIN 4.6 g/dL (6.3-8.3)
--- NOTE | 2018-07-18 07:12 | EKG Report ---
Test Performed on : 07/16/2018 2:51:35 PM Test Reason : cp Blood Pressure : / mmHG Vent. Rate : 142 BPM Atrial Rate : 142 BPM P-R Int : 122 ms QRS Dur : 056 ms QT Int : 238 ms P-R-T Axes : 044 007 036 degrees QTc Int : 366 ms Sinus tachycardia. Possible Left atrial enlargement Low voltage QRS Nonspecific ST and T wave abnormality Abnormal ECG When compared with ECG of 16-JUL-2018 02:39, (Unconfirmed) No significant change was found Confirmed by Haley SHERMAN, Mark Fine ([id number]) on 07/18/2018 11:22:32 AM
--- NOTE | 2018-07-18 07:13 | EKG Report ---
Test Performed on : 07/16/2018 02:39:01 AM Test Reason : increase pulse Blood Pressure : / mmHG Vent. Rate : 148 BPM Atrial Rate : 148 BPM P-R Int : 114 ms QRS Dur : 060 ms QT Int : 252 ms P-R-T Axes : 062 010 030 degrees QTc Int : 395 ms Sinus tachycardia. Possible Left atrial enlargement Borderline Low voltage QRS Nonspecific ST abnormality Abnormal ECG When compared with ECG of 11-JUL-2018 14:28, tachycardia is new, as is nonspecific ST abnormality Confirmed by Haley SHERMAN, Mark Fine ([id number]) on 07/18/2018 11:07:00 AM
--- NOTE | 2018-07-18 08:07 | Diag Imaging Result Doc PS360 ---
EXAM: CHEST-2 VIEWS HISTORY: pneumonia TECHNIQUE: Chest two views COMPARISON: 07/16/2018 FINDINGS: The lungs are well expanded. The heart is not enlarged. The vessels are not distended. There are small infiltrates in the lung bases with atelectasis and trace pleural fluid. IMPRESSION: Persistent basilar infiltrates and atelectasis with no interval improvement. Electronically signed by Cortez Campbell 07/18/2018 8:04 AM
[2018-07-18] MEDS: SYNTHROID IV SCH (10:19)
[2018-07-18] MEDS: PERIDEX MT SCH ×2 (10:19→21:41)
[2018-07-18] MEDS: DULCOLAX PR SCH (10:20)
[2018-07-18] MEDS: ICAR-C PO SCH ×2 (10:20→21:41)
[2018-07-18] MEDS: CENTRUM SILVER PO SCH (10:20)
[2018-07-18 10:53] LABS: HEPATITIS PROFILE ACUTE SEE COMMENTS
[2018-07-18] MEDS: SODIUM CHLORIDE 0.9% INJ SCH (17:57)
--- NOTE | 2018-07-18 18:56 | PROGRESS NOTE ---
DATE: 07/18/2018 DATE OF ROUNDS: 07/18/2018. SUBJECTIVE: The patient states that she is feeling better today. She has been ambulating in the hallway. She has passed spontaneous flatus, but has not yet had a bowel movement. According to the patient's family, she has only had sips of her clear liquid diet as she does not like the taste. She states that she is willing to eat chicken noodle soup and perhaps drink a milk shake. Her mother notes that she has been a finicky eater most of her life. She denies abdominal pain, fever or chills. PHYSICAL EXAMINATION: Vital Signs: Her blood pressure is 137/93, pulse of 89, respirations 16. Her temperature at present is 98.7. Her T-max was 102. HEENT: Unremarkable. Pulmonary: Lungs are clear to auscultation with normal respiratory effort. Cardiovascular: Reveals regular rate and rhythm. Abdomen: She has normoactive bowel sounds. The abdomen is soft with mild diffuse tenderness which is appropriate given her recent surgery. OBJECTIVE DATA: Reveals a hemoglobin of 8.6 post transfusion with hematocrit of 25.3 and a white count of 14.07. She has 151,000 platelets. Sodium is 136, potassium 3.4, chloride 103, CO2 22, BUN 21, creatinine 0.8 with a glucose of 105. Calcium is 9.5, total bilirubin 1.73, direct bilirubin 0.50, AST 146, ALT 752, alkaline phosphatase 155, LDH 457, total protein 4.6 and albumin 2.6. IMPRESSION: 1. Peptic ulcer disease with gastric outlet obstruction status post antrectomy. 2. Shock liver. 3. Anorexia. RECOMMENDATION: 1. With regard to the peptic ulcer disease, I would continue her current medications with Protonix 40 mg IV q.12 hours. 2. The patient's p.o. intake has been extremely poor. I would continue the Clinimix. 3. She states that she is willing to try a full liquid diet as she prefers the food choices that are available on the full liquid diet. Therefore, I will advance her diet to a full liquid diet. 4. She has evidence of shock liver that is improving with hydration and fluids. I recommend continued conservative management at this time. 5. If she continues to have diffuse abdominal pain, it would be reasonable to resume her Bentyl as she has a history of irritable bowel syndrome. 6. The patient continues to have an elevated white blood cell count; however, it is improving. At this time, I recommend conservative management. If she continues to have fever or her white count stays above 10,000, it would be reasonable to obtain a CT scan of the chest, abdomen and pelvis. cc: MD Janes Long MD Thomas E. Lockard, DO Matthew L. Figh, MD
[2018-07-18] MEDS ORDERED: KLOR-CON PO ONE (19:12)
[2018-07-18] MEDS ORDERED: NS 1,000 ML IV SCH (19:15)
--- NOTE | 2018-07-18 19:45 | PROGRESS NOTE ---
DATE: 07/18/2018 SUBJECTIVE: The patient resting in bed. Not in any obvious distress. OBJECTIVE: Vital Signs: Temperature 98.1, pulse 98, respiratory rate 18, blood pressure 150/91, oxygen 98%. HEENT: Atraumatic, normocephalic. Cardiovascular: S1, S2. Respiratory: Has evidence of good air entry bilaterally. Abdomen: Soft, nontender. No masses felt. Extremities: No evidence of edema. Central Nervous System: No obvious focal deficit noted. LABS: WBC 14.07, hematocrit is 25.3, with a platelet count of 451,000. Sodium is 136, potassium 3.4, chloride 103, bicarb 22, BUN is 21, creatinine 0.8. AST 146, ALT 752, alkaline phosphatase 155, LDH 457. ASSESSMENT AND PLAN: 1. Acute hepatitis most likely secondary to shock liver. Follow up on liver function tests which seem to be improving at this time. 2. Acute kidney injury. Follow up on renal function while patient is on intravenous fluids. 3. Pneumonia. Continue antibiotics. 4. Anemia. Follow up on hemoglobin, hematocrit. Transfuse PRBCs as needed. 5. DVT prophylaxis. SCD. 6. GI prophylaxis. PPI. cc: Janes Guadarrama MD
[2018-07-19] MEDS: CLINIMIX E 4.25%-5% SOLUTION 1,000 ML IV SCH ×3 (05:16→20:30)
[2018-07-19] MEDS: MERREM 1 GM in NS 50 ML IV SCH ×3 (05:16→22:32)
[2018-07-19] MEDS: LOPRESSOR IV SCH ×3 (05:18→16:04)
[2018-07-19] MEDS: PROTONIX IV SCH ×3 (05:18→20:30)
[2018-07-19] MEDS: SODIUM CHLORIDE 0.9% INJ SCH ×3 (05:18→20:28)
[2018-07-19] MEDS: SYNTHROID IV SCH ×2 (05:19→08:24)
--- NOTE | 2018-07-19 06:15 | GENERAL SURGERY PROGRESS NOTE ---
DATE: 07/19/2018 SUBJECTIVE: Patient is doing better. Tolerated a full liquid diet. Had a bowel movement. She seems to be in better spirits. OBJECTIVE: Vital Signs: Patient is currently afebrile. Her vital signs are stable. General: No acute distress. Cardiovascular: Regular rate and rhythm. Lungs: Grossly clear. Abdomen: Soft, appropriately tender. Bowel sounds auscultated. Incision healing well. ASSESSMENT AND PLAN: A 42-year-old currently postoperative day #5 from open truncal vagotomy with antrectomy and Billroth 1 anastomosis. Postoperative state. At this time, patient is doing well. We will transition over to a GI soft diet with 6 small meals a day as opposed to 3 large ones. 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 Hopefully, she can be transitioned to being discharged here in the near future. cc: MD Janes Hassan MD
[2018-07-19 07:04] LABS: AGAP 9; BUN 17 mg/dL (8-22); CALCIUM 9.4 mg/dL (8.8-10.2); CHLORIDE 103 mmol/L (98-107); COSMO 272; CREATININE 0.5 mg/dL (0.5-0.9); ESTIMATED GFR > 60; GLUCOSE 98 mg/dL (70-104); POTASSIUM 3.7 mmol/L (3.5-5.1); SODIUM 135 mmol/L (136-145); TCO2 23 mmol/L (25-35)
[2018-07-19] MEDS: CENTRUM SILVER PO SCH (09:37)
[2018-07-19] MEDS: NORCO-10 PO PRN ×3 (09:37→22:36)
[2018-07-19] MEDS: ICAR-C PO SCH ×2 (09:37→22:36)
[2018-07-19] MEDS: DULCOLAX PR SCH (09:37)
[2018-07-19] MEDS: PERIDEX MT SCH ×2 (09:38→22:33)
[2018-07-19 12:03] LABS: BASO# 0.04 X1000 (0.0-0.2); BASO% 0.3 % (0.0-0.8); EOS# 0.43 X1000 (0.0-0.7); HEMATOCRIT 26.9 % (37.0-47.0); IMM GRAN# 0.17 X1000 (0.0-0.04); IMM GRAN% 1.2 % (0.0-0.5); LYMPH# 1.41 X1000 (1.2-3.4); MCH 29.2 PG (27-31); MCHC 33.5 g/dL (33-37); MCV 87.3 FL (81-99); MONO# 2.15 X1000 (0.11-0.59); MONO% 15.2 % (1.7-9.3); MPV 12.4 FL (7.4-10.4); NEUT# 9.95 X1000 (1.4-6.5); NEUT% 70.3 % (42.2-75.2); PLT 163 X1000 (130-400); RBC 3.08 XMIL (4.2-5.4); WBC 14.15 X1000 (4.8-10.8)
[2018-07-19 12:17] LABS: ALB/GLOB RATIO 1.5; ALBUMIN 2.6 g/dL (3.5-5.0); DIRECT BILIRUBIN 0.5 mg/dL (0.00-0.20); TOTAL BILIRUBIN 1.65 mg/dL (0.20-1.00); TOTAL PROTEIN 4.3 g/dL (6.3-8.3)
[2018-07-19 14:07] LABS: HERPES SIMPLEX AB SEE COMMENTS
--- NOTE | 2018-07-19 18:15 | PROGRESS NOTE ---
DATE: 07/19/2018 SUBJECTIVE: She looks well. She is sitting up in bed. She is smiling. She is eating a little bit. OBJECTIVE: Vital Signs: Blood pressure is 139/89, heart rate 87, respiratory rate 16, temperature 99.8. Cardiovascular: Regular rate and rhythm. Pulmonary: Bilateral breath sounds. Clear to auscultation. GI: Soft, nontender, nondistended. Bowel sounds are positive. LABORATORY DATA: Her white count is 14, still up a bit. Hemoglobin and hematocrit are 9 and 26, platelets 163. Basic was okay. T-bili is still up a little bit at 1.65. AST and ALT are down to 68 and 471 respectively. PROBLEM LIST: 1. Hepatitis, most likely due to ischemic hepatitis. LDH was extremely elevated, which was consistent. Her numbers are improving greatly. Will continue gentle hydration. 2. Acute kidney injury, also likely a brief acute tubular necrosis. Will continue intravenous fluids and follow. 3. Pneumonia. Continue empiric antibiotics. May need to consider repeating her x-ray. Her chest x-ray showed some bibasilar infiltrates. She really does need to use some incentive spirometry, though. 4. Peptic ulcer disease. She is doing better from that standpoint. We will continue to follow. 5. Discharge will be per Dr. Arcos. Appreciate consultation. I think she will at least need 24 hours for hydration, and will follow. cc: Patrice Ragsdale MD
[2018-07-19 18:50] LABS: AGAP 11; ALB/GLOB RATIO 1.3; ALBUMIN 2.5 g/dL (3.5-5.0); ALKALINE PHOSPHATASE 179 U/L (32-104); BUN 17 mg/dL (8-22); CALCIUM 9.1 mg/dL (8.8-10.2); CHLORIDE 103 mmol/L (98-107); COSMO 273; CREATININE 0.6 mg/dL (0.5-0.9); ESTIMATED GFR > 60; GLUCOSE 84 mg/dL (70-104); GOT 60 U/L (10-30); GPT 408 U/L (10-36); POTASSIUM 3.8 mmol/L (3.5-5.1); SODIUM 136 mmol/L (136-145); TCO2 22 mmol/L (25-35); TOTAL BILIRUBIN 1.94 mg/dL (0.20-1.00); TOTAL PROTEIN 4.4 g/dL (6.3-8.3)
[2018-07-19] MEDS: TOPROL XL PO SCH (22:33)
[2018-07-20] MEDS: CLINIMIX E 4.25%-5% SOLUTION 1,000 ML IV SCH (01:40)
[2018-07-20] MEDS: MERREM 1 GM in NS 50 ML IV SCH (04:33)
[2018-07-20] MEDS: SODIUM CHLORIDE 0.9% INJ SCH (04:34)
[2018-07-20] MEDS: NORCO-10 PO PRN ×2 (04:34→09:57)
[2018-07-20] MEDS: PROTONIX IV SCH (04:34)
[2018-07-20] MEDS: SYNTHROID IV SCH (04:35)
--- NOTE | 2018-07-20 06:16 | GENERAL SURGERY PROGRESS NOTE ---
DATE: 07/20/2018 Patient seems to be doing well. Hemodynamically, she has been stable. She is tolerating her GI soft diet and her oral pain pills. She is passing gas and having bowel movements. Her incision seems to be healing well. From a surgical point of view, I think she can be discharged home. We will discuss with the hospitalist but hopefully can discharge her home today if they agree. cc: MD Patrice Hassan MD
[2018-07-20 06:36] LABS: BASO# 0.05 X1000 (0.0-0.2); BASO% 0.3 % (0.0-0.8); EOS# 0.35 X1000 (0.0-0.7); EOS% 2.4 % (0.0-10.0); HEMATOCRIT 24.9 % (37.0-47.0); HEMOGLOBIN 8.2 g/dL (12.0-16.0); IMM GRAN# 0.35 X1000 (0.0-0.04); IMM GRAN% 2.4 % (0.0-0.5); LYMPH# 1.41 X1000 (1.2-3.4); LYMPH% 9.7 % (20.5-51.1); MCH 29.1 PG (27-31); MCHC 32.9 g/dL (33-37); MCV 88.3 FL (81-99); MONO# 2.68 X1000 (0.11-0.59); MONO% 18.5 % (1.7-9.3); MPV 12.1 FL (7.4-10.4); NEUT# 9.65 X1000 (1.4-6.5); NEUT% 66.7 % (42.2-75.2); PLT 184 X1000 (130-400); RBC 2.82 XMIL (4.2-5.4); WBC 14.49 X1000 (4.8-10.8)
[2018-07-20 07:46] VITALS: BP 116/71
[2018-07-20 09:24] LABS: AGAP 13; ALB/GLOB RATIO 1.6; ALBUMIN 2.5 g/dL (3.5-5.0); ALKALINE PHOSPHATASE 196 U/L (32-104); BUN 18 mg/dL (8-22); CALCIUM 8.6 mg/dL (8.8-10.2); CHLORIDE 100 mmol/L (98-107); COSMO 270; CREATININE 0.6 mg/dL (0.5-0.9); ESTIMATED GFR > 60; GLUCOSE 91 mg/dL (70-104); GOT 53 U/L (10-30); GPT 312 U/L (10-36); SODIUM 134 mmol/L (136-145); TCO2 21 mmol/L (25-35); TOTAL PROTEIN 4.1 g/dL (6.3-8.3)
[2018-07-20] MEDS: TOPROL XL PO SCH (09:55)
[2018-07-20] MEDS: ICAR-C PO SCH (09:55)
[2018-07-20] MEDS: DULCOLAX PR SCH (09:55)
[2018-07-20] MEDS: PERIDEX MT SCH (09:55)
[2018-07-20] MEDS: CENTRUM SILVER PO SCH (09:55)
[2018-07-20] MEDS ORDERED: PROTONIX PO SCH (21:00)
[2018-07-21] MEDS ORDERED: SYNTHROID PO SCH (07:00)
--- NOTE | 2018-07-22 07:07 | DISCHARGE SUMMARY ---
ADMISSION DATE: 07/14/2018 DISCHARGE DATE: 07/20/2018 ADMITTING DIAGNOSIS: Intractable peptic ulcer disease with gastric outlet obstruction and acquired pyloric stenosis. DISCHARGE DIAGNOSIS: Status post open vagotomy with antrectomy with Billroth 1 reconstruction. ADMITTING PHYSICIAN: Saul Arcos MD. CONSULTATIONS: The hospitalist service for medical management and Dr. Ronquillo of Gastroenterology. PROCEDURE: On 07/14/2018, patient underwent open truncal vagotomy and antrectomy. BRIEF HISTORY AND COURSE OF STAY: A 42-year-old female with peptic ulcer disease and gastric outlet obstruction. She was admitted and underwent previously described procedure, which she tolerated well. Her postoperative course saw that she did have a little bit of low-flow which developed shock liver which she improved from very quickly. She progressed to having return of bowel function and doing well overall. She progressed as expected. We did have the hospitalist see her for medical management, which she did well with. She was progressed from a liquid diet to a soft diet. On the day of discharge, she was up and ambulating, tolerating her diet. Pain controlled with p.o. pain medicine and not having a fever. Therefore, it is felt that she would be safe to be discharged home. Her incision was healing well. Her shock liver had improved dramatically and had returned to baseline from labs and everything had improved as expected. Therefore, the day of discharge on 07/20/2018 all arrangements were made. DISPOSITION: Home. DISCHARGE CONDITION: Stable. FOLLOW-UP: Patient told to follow up with me in 1 to 2 weeks. PRESCRIPTIONS: Patient given prescription for pain medicine and continue Protonix and Synthroid. cc: Saul Arcos MD
== END 2018-07-20 14:25 | disposition home or self-care (01) | DRG 326 ==
LOC: SURHOLD 10:53 → 4N 15:22
PROVIDERS: ADMIT Internal Medicine; ATTEND Surgery
CPT/HCPCS: 36430; 71010; 71020; 71045; 71046; 74019; 74020; 76770; 80048; 80053; 80074; 80076; 81001; 81256; 82570; 82607; 82728; 82746; 82977; 83540; 83550; 83615; 83735; 84075; 84080; 84156; 84300; 84443; 85014; 85018; 85025; 85027; 85045; 86644; 86645; 86694; 86695; 86696; 86850; 86900; 86901; 86920; 87040; 87088; 87205; 93005; 93010; 94761; 94799; 99999; A9270; C9113; C9290; J0131; J0330; J0694; J1100; J1170; J1644; J2185; J2250; J2405; J2550; J3010; J7030; J7040; J7120; P9016; S0164